=== PATIENT | female | born 1955 | race Caucasian/White ===

== ENCOUNTER 2019-12-12 07:34 | Day surgery (SDC) | payer BC | END 2019-12-12 23:13 | disposition home or self-care (01) | LOC: MOI US 07:34 → MOI MAM 08:00 → MOI US 23:13 | DX: D24.1 Benign neoplasm of right breast (principal) | CPT/HCPCS: 19083; 77065; 88305; 88341; 88342; A4648; G0279 ==

== ENCOUNTER 2024-02-18 12:23 | Day surgery (SDC) | payer MEDICARE, BC ==
[~2024-02-18] VITALS: Ht 175.3 cm; Wt 59.1 kg
[~2024-02-18 12:23] MED LIST: Lactated Ringer's 1,000 ML IV ONE; propofoL 50 ML IV ONE
[2024-02-18] MEDS ORDERED: META800 (12:57)
[2024-02-18] MEDS ORDERED: Lactated Ringer's 1,000 ML IV ONE (13:54)
[2024-02-18] MEDS ORDERED: propofoL 50 ML IV ONE (14:47)
[2024-02-18 15:16] VITALS: BP 122/82
== END 2024-02-18 15:19 | disposition home or self-care (01) ==
LOC: ORSCSDS 12:23
PROVIDERS: Internal Medicine Gastroenterology
PROC: 0DBN8ZX Excision of Sigmoid Colon, Via Natural or Artificial Opening Endoscopic, Diagnostic (ICD-10-PCS; principal; 2024-02-18 14:00)
PROC: 0DBK8ZX Excision of Ascending Colon, Via Natural or Artificial Opening Endoscopic, Diagnostic (ICD-10-PCS; principal; 2024-02-18 14:00)
PROC: 0DBM8ZX Excision of Descending Colon, Via Natural or Artificial Opening Endoscopic, Diagnostic (ICD-10-PCS; principal; 2024-02-18 14:00)
DX: Z12.11 Encounter for screening for malignant neoplasm of colon (principal); R19.5 Other fecal abnormalities; K63.5 Polyp of colon; D12.5 Benign neoplasm of sigmoid colon; E78.5 Hyperlipidemia, unspecified; F17.210 Nicotine dependence, cigarettes, uncomplicated
CPT/HCPCS: 88305; J2704; J7120